=== PATIENT | male | born 1945 | race African-American/Black ===

== ENCOUNTER 2017-05-28 07:28 | Emergency (ER) | payer OTHER ==
[~2017-05-28] VITALS: Ht 177.8 cm; Wt 87.0 kg
[2017-05-28] MEDS ORDERED: LOVA20TA2 PO (07:39)
[2017-05-28] MEDS ORDERED: SODIUM CHLORIDE 0.9% 1,000 ML IV ONE (08:08)
[2017-05-28 08:39] LABS: PROTHROMBIN TIME 10.4 sec (9.4-11.6)
[2017-05-28 08:41] LABS: BASOPHILS % 0.3 % (0.0-2.0); HEMATOCRIT. 37.1 % (42.0-52.0); HEMOGLOBIN. 12.4 g/dL (14.0-18.0); LYMPHOCYTES % 13.5 % (20.0-50.0); MEAN CORPUSCULAR HEMOGLOBIN 29.6 pg (28.0-32.0); MEAN CORPUSCULAR VOLUME 88.4 fL (80.0-94.0); MONOCYTES % 7.9 % (2.0-8.0); NEUTROPHILS % 77.3 % (40.0-76.0); PLATELET 188 x1000/uL (130-400); RED CELL DISTRIBUTION WIDTH 13.7 % (11.6-14.6)
[2017-05-28 08:47] LABS: CARBON DIOXIDE 29 mEq/L (21-32); CHLORIDE 103 mEq/L (98-107)
[2017-05-28 08:58] LABS: BG BASE EXCESS -0.7 mmol/L (-2.0-2.0); BG CARBOXYHEMOGLOBIN 2.1 % (0.5-1.5); BG DEOXYHEMOGLOBIN 0.7 % (0.0-5.0); BG FRACTION INSPIRED OXYGEN 100; BG METHEMOGLOBIN 0.3 % (0.0-1.5); BG OXYGEN SATURATION 99.3 % (92.0-98.5); BG OXYHEMOGLOBIN 96.9 % (94.0-97.0); BG PCO2 34.9 mmHg (35.0-45.0); BG PH 7.437 (7.350-7.450); BG PO2 367.8 mmHg (75.0-100.0); BG SAMPLE SITE RIGHT RADIAL; BG TOTAL HEMOGLOBIN 13.2 g/dL (12.0-18.0); BG VENT MODE MASK - NRB
[2017-05-28] MEDS ORDERED: ALBUTEROL (0.083%) 2.5MG/3ML NEB HHN STA (11:03)
[2017-05-28] MEDS ORDERED: MUPIROCIN 2% OINT 22GM TOP STA (11:24)
[2017-05-28] MEDS ORDERED: VECURONIUM BROMIDE 10 MG/VIAL IV ONE ×2 (13:45→13:57)
[2017-05-28] MEDS ORDERED: ETOMIDATE 2MG/ML 10ML VIAL IV ONE ×2 (13:45→13:57)
[2017-05-28] MEDS ORDERED: PROPOFOL 10MG/ML 100ML 100 ML IV ONE ×2 (13:57→14:00)
[2017-05-28] MEDS ORDERED: STERILE WATER FOR INJECTION 10ML VIAL ONE (13:57)
[2017-05-28 15:13] VITALS: BP 195/97
== END 2017-05-28 15:53 | disposition short-term general hospital (02) ==
LOC: ER 08:02
DX: T20.00XA Burn of unspecified degree of head, face, and neck, unspecified site, initial encounter (principal); I11.0 Hypertensive heart disease with heart failure; I50.9 Heart failure, unspecified; X08.8XXA Exposure to other specified smoke, fire and flames, initial encounter; Y93.89 Activity, other specified; Y92.89 Other specified places as the place of occurrence of the external cause; Y99.8 Other external cause status
CPT/HCPCS: 31500; 31525; 36415; 36600; 71010; 80053; 82375; 82805; 85025; 85610; 93005; 94640; 96361; 96374; 99291; A4216; J2704; J3490; J7030; J7611; 94002; A4315